=== PATIENT | female | born 2000 | race Caucasian/White ===

== ENCOUNTER 2023-04-09 19:13 | Emergency (ER) | payer OTHER, SELFPAY ==
--- NOTE | ~2023-04-09 | CT_ITS ---
EXAMINATION: CT facial bones wo con DATE: 04/09/2023 21:02 INDICATION: Facial trauma and pain TECHNIQUE: Computed tomography (CT) of the facial bones and maxillofacial region was performed withou t intravenous contrast. The dose-length product (DLP) was 320.05 mGy-cm. Automated exposure control a nd iterative reconstruction technique were employed. COMPARISON: None. FINDINGS: There is a soft tissue laceration of the chin inferior to the mandible to the left of midli ne. No facial fracture is identified. The paranasal sinuses are clear. The visualized portions of the cervical spine are unremarkable. The globes and orbits are normal. IMPRESSION: 1. Soft tissue laceration without facial bone fracture. Reviewed, dictated and finalized at location F.
[2023-04-09 19:19] VITALS: BP 137/94; PULSE 104; RESP 14; TEMP 36.7; O2SAT 100
[2023-04-09] MEDS: LIDOCAINE, EPINEPHRINE, TETRACAINE VISCOUS SOLN 3 ML TOPICAL (20:05)
[2023-04-09] MEDS: TETANUS,DIPHTHERIA,AC PERTUSSIS ADULT (0.5 ML) BOOSTRIX IM (20:05)
--- NOTE | 2023-04-09 20:56 | ED.WOUNDLAC ---
HPI - Wound/Laceration General Chief Complaint: Wound/Laceration Stated Complaint: laceration Time Seen by Provider: 04/09/23 19:23 History of Present Illness HPI narrative: This is a 22-year-old female who denies significant past medical history, presenting to the emergency department after a fall and laceration of the chin. The patient states she was rollerblading, when she fell, striking her chin on the ground. She did not lose consciousness. She complains of 4/10 sharp chin pain that does not radiate. She also complains of 1/10 bilateral knee pain. She is not sure of her last tetanus. Related Data Allergies Allergy/AdvReac Type Severity Reaction Status Date / Time No Known Allergies Verified 04/09/23 19:34 Review of Systems Review of Systems: CONSTITUTIONAL: Denies fever, chills, or sweats. EYES: Denies visual changes, redness, or discharge. ENT: Chin pain denies rhinorrhea, congestion, sore throat, or otalgia. CARDIOVASCULAR: Denies chest pain, palpitations, or edema. RESPIRATORY: Denies cough or dyspnea. GASTROINTESTINAL: Denies abdominal pain, nausea, vomiting, or diarrhea. GENITOURINARY: Denies dysuria or hematuria. SKIN: Laceration of chin denies rash or itching. MUSCULOSKELETAL: Denies back pain, joint pain, or myalgia. NEUROLOGIC: Denies headache, numbness, dizziness, or weakness. PSYCHIATRIC: Denies anxiety or depression. PMFSH Past Medical History Medical History (Updated 04/09/23 @ 22:59 by Hollis Urena MD) No significant past medical history Surgical History Surgical History (Updated 04/09/23 @ 22:59 by Hollis Urena MD) No significant past surgical history Social History Social History (Updated 04/09/23 @ 22:59 by Hollis Urena MD) Smoking status: Never smoker Alcohol intake: current Drinks per week: 1 Substance use: never Exam Narrative: GENERAL: Well-developed, well-nourished, and in no acute distress. HEAD: Normocephalic, an approximate 2 cm laceration without exposed bone is noted at the inferior aspect of the midline chin. EYES: PERRLA and EOMI. ENT: Nares clear, no rhinorrhea or epistaxis. Mucous membranes moist. Oropharynx without tonsillar hypertrophy exudate or other lesions. NECK: Supple. No adenopathy or masses. No midline spine tenderness to palpation, no step-off or crepitus CHEST: Clear to auscultation. No respiratory distress. No wheezes rales or rhonchi HEART: Regular rate and rhythm. No murmur heard. Normal peripheral pulses. ABDOMEN: Soft, nontender, nondistended, normal active bowel sounds. BACK: No midline spine tenderness to palpation, no step-off or crepitus EXTREMITIES: Normal range of motion. No edema. SKIN: Warm, dry, no rash. NEURO: No focal deficits. Alert and oriented x3. PSYCH: Normal mood and affect. Course Course Emergency Course: 21:45 - CT of the face is negative for fracture or retained foreign object. The patient's laceration was repaired; please see procedure note. Discussed wound care and need for follow-up with her primary care doctor in 1 week for reevaluation. Discussed return and emergency precautions including signs/symptoms of wound infection and dehiscence. The patient voiced understanding and is comfortable with the plan. All questions answered to her satisfaction. Vital Signs Vital signs: Vital Signs Temperature 98.1 F 04/09/23 19:19 Pulse Rate 104 H 04/09/23 19:19 Respiratory Rate 14 04/09/23 19:19 Blood Pressure 137/94 H 04/09/23 19:19 Pulse Oximetry 100 04/09/23 19:19 Oxygen Delivery Room Air 04/09/23 19:19 Temperature 98.1 F 04/09/23 19:19 Pulse Rate 85 04/09/23 22:30 Respiratory Rate 16 04/09/23 22:30 Blood Pressure 128/86 04/09/23 22:30 Pulse Oximetry 100 04/09/23 22:30 Oxygen Delivery Room Air 04/09/23 19:19 Procedures Laceration Laceration 1: Date: 04/09/23 Time: 21:36 Site: face (Chin) Size (cm): 3
[2023-04-09 22:30] VITALS: BP 128/86; PULSE 85; RESP 16; O2SAT 100
== END 2023-04-09 22:31 | disposition home or self-care (01) ==
PROVIDERS: Emergency Provider Preventive Medicine Aerospace Medicine; PCP Family Medicine
DX: S01.81XA Laceration without foreign body of other part of head, initial encounter (principal); Z23 Encounter for immunization; V00.111A Fall from in-line roller-skates, initial encounter; Y93.51 Activity, roller skating (inline) and skateboarding
CPT/HCPCS: 12052; 70486; 90471; 90715; 99284